=== PATIENT | female | born 1990 | race Two or more races ===

== ENCOUNTER → 2019-01-04 | Emergency (ER) | payer SELFPAY ==
[~2019-01-04] VITALS: Ht 167.6 cm; Wt 108.9 kg
--- NOTE | 2019-01-04 22:06 | NUR ---
CALLED PT IN WAITING ROOM. NO RESPONSE.
[2019-01-04 22:46] VITALS: BP 144/101
--- NOTE | 2019-01-04 23:32 | NUR ---
CALLED PT IN WAITING ROOM. NO RESPONSE. CALLED PT IN WAITING ROOM. NO RESPONSE.
--- NOTE | 2019-01-05 00:23 | NUR ---
CALLED PT IN WAITING ROOM. NO RESPONSE.
== END | disposition left against medical advice (07) ==
LOC: ER 22:00
DX: R11.10 Vomiting, unspecified (principal); R51 Headache; Z53.21 Procedure and treatment not carried out due to patient leaving prior to being seen by health care provider

== ENCOUNTER 2019-04-23 11:47 | Emergency (ER) | payer MEDICAID ==
[~2019-04-23] VITALS: Ht 167.6 cm; Wt 117.9 kg
--- NOTE | 2019-04-23 11:55 | NUR ---
patient came in to the er c/o cough, on room air, breathing evenly and unlabored. connected to the monitor and pulse ox. kept comfortable, will continue to monitor accordingly.
[2019-04-23 12:17] VITALS: BP 156/92
--- NOTE | 2019-04-23 12:17 | NUR ---
Patient discharged to home in stable condition. Written and verbal after care instructions given. Patient verbalizes understanding of instruction.
== END 2019-04-23 12:17 | disposition home or self-care (01) ==
LOC: ER 11:52
DX: J06.9 Acute upper respiratory infection, unspecified (principal); J45.909 Unspecified asthma, uncomplicated; Z88.5 Allergy status to narcotic agent